=== PATIENT | male | born 1950 | race Caucasian/White ===

== ENCOUNTER 2020-06-01 12:27 | Outpatient (CLI) | payer MEDICARE, OTHER ==
[2020-06-01 17:59] LABS: ALT (SGPT) 40 U/L (8-55); AST (SGOT) 27 U/L (5-34); Albumin 4.2 g/dL (3.4-4.8); Alkaline Phosphatase 76 U/L (40-110); Bilirubin, Direct 0.3 mg/dL (0.1-0.3); Bilirubin, Total 0.7 mg/dL (0.2-1.2); Cardiac Risk 3.2 (Less than 4.5); Cholesterol 116 mg/dl (< 200 Desired); HDL Cholesterol 36 mg/dL (>60 Neg Risk); LDL Cholesterol, Calculated 63 mg/dL; Protein, Total 6.7 g/dL (5.8-8.1); Triglycerides 87 mg/dL (Less than 150)
== END 2020-06-01 12:28 | disposition home or self-care (01) ==
LOC: NAV LABSP 12:27
PROVIDERS: ATTEND Internal Medicine Cardiovascular Disease
DX: E78.2 Mixed hyperlipidemia (principal); Z79.899 Other long term (current) drug therapy
CPT/HCPCS: 36415; 80061; 80076

== ENCOUNTER 2021-04-17 16:39 | Emergency (ER) | payer MEDICARE, OTHER ==
[2021-04-17 17:38] LABS: Bilirubin Negative (Negative); Blood, Urine Negative (Negative); Clarity Slightly Cloudy (Clear); Glucose, Urine (Dipstick) Negative (Negative); Ketone, Urine Trace mg/dL (Negative); Leukocyte Small (Negative); Nitrite Positive (Negative); Protein, Urine (Dipstick) 30 mg/dL (Neg-Trace); Specific Gravity, Urine 1.025 (1.005-1.030); Urobilinogen 0.2 mg/dL (Less than 2); pH, Urine 5.5 (5.0-9.0)
[2021-04-17 17:48] LABS: Bacteria/HPF 2+ HPF (None Seen); Squamous Epithelial 0-3 HPF (0-3); Yeast-Budding 2+ HPF (None Seen)
[2021-04-17 17:49] LABS: Mucous/LPF 2+ LPF (<2+)
[2021-04-17] MEDS ORDERED: Acetaminophen 500 MG TAB ONE (18:20)
[2021-04-17] MEDS ORDERED: Cipro 250 MG TAB ONE (18:20)
[2021-04-18 15:39] LABS: SARS-CoV-2 PCR by NAA Not Detected (NotDetected)
== END 2021-04-17 18:38 | disposition home or self-care (01) ==
LOC: NAV ERS 16:39
DX: J06.9 Acute upper respiratory infection, unspecified (principal); N39.0 Urinary tract infection, site not specified; Z20.822 Contact with and (suspected) exposure to COVID-19; E78.5 Hyperlipidemia, unspecified; I25.10 Atherosclerotic heart disease of native coronary artery without angina pectoris; N40.0 Benign prostatic hyperplasia without lower urinary tract symptoms; E11.9 Type 2 diabetes mellitus without complications; G47.33 Obstructive sleep apnea (adult) (pediatric); Z79.01 Long term (current) use of anticoagulants; Z79.84 Long term (current) use of oral hypoglycemic drugs; Z79.899 Other long term (current) drug therapy
CPT/HCPCS: 71046; 87086; 87186; U0003; U0005; 81003; 81015; 99283

== ENCOUNTER 2023-08-22 09:04 | Outpatient (CLI) | payer MEDICARE, OTHER | END 2023-08-22 09:05 | disposition home or self-care (01) | LOC: NAV RAD 09:04 | PROVIDERS: ATTEND Student in an Organized Health Care Education/Training Program | DX: J40 Bronchitis, not specified as acute or chronic (principal) | CPT/HCPCS: 71045 ==

== ENCOUNTER 2024-07-14 10:09 | Outpatient (CLI) | payer MEDICARE, OTHER | END 2024-07-14 10:10 | disposition home or self-care (01) | LOC: NAV RAD 10:09 | PROVIDERS: ATTEND Family Medicine | DX: J20.9 Acute bronchitis, unspecified (principal) | CPT/HCPCS: 71046 ==